=== PATIENT | female | born 1970 | race Caucasian/White ===

== ENCOUNTER 2017-10-01 13:44 | Emergency (ER) | payer OTHER, BC ==
[2017-10-01 13:46] VITALS: BP 133/85; PULSE 97; RESP 17; TEMP 99; O2SAT 98
[2017-10-01] MEDS ORDERED: ROBA500T PO (15:03)
--- NOTE | 2017-10-01 15:08 | PD ---
HPI Chief Complaint: Back/ Neck Pain or Injury Time Seen by Provider: 15:03 Travel History International Travel<30 days: No Contact w/Intl Traveler<30days: No Traveled to known affect area: No History of Present Illness HPI 46-year-old female presents to the emergency department with low back pain for approximately 2 weeks. Patient states that she has been pulling and pushing more frequently. 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 department because they have been down several people. Patient states that she was seen by urgent care and they prescribed 2 days of cyclobenzaprine and Medrol Dosepak for her pain. Patient does not remember any specific inciting event however her pain has worsened over the last 2 weeks after the increased workload. Patient denies radiation of pain at this point. Patient states that the pain is mild and worse with movement. Patient denies urinary complaints. Patient denies history of IV drug use, loss of bowel or bladder function, saddle anesthesia, weakness. She is here for Worker's Comp. [facility] Social History Tobacco Use: No Allergies-Medications (Allergen,Severity, Reaction): Coded Allergies: No Known Allergies (Unverified , 10/01/17) Reported Meds & Prescriptions Reported Meds & Active Scripts Active Robaxin (Methocarbamol) 500 Mg Tab 500 Mg PO TID 5 Days Review of Systems Except as stated in HPI: all other systems reviewed are Neg Physical Exam Narrative GENERAL: Well-nourished, well-developed patient. SKIN: Focused skin assessment warm/dry. HEAD: Normocephalic. EYES: No scleral icterus. No injection or drainage. NECK: Supple, trachea midline. No JVD or lymphadenopathy. CARDIOVASCULAR: Regular rate and rhythm without murmurs, gallops, or rubs. RESPIRATORY: Breath sounds equal bilaterally. No accessory muscle use. BACK: No CVA tenderness. No rash. No point tenderness on palpation of the spine. Paraspinous muscle tenderness from L1 to S1 MUSCULOSKELETAL: No cyanosis, or edema. Data Data Last Documented VS Vital Signs Date Time Temp Pulse Resp B/P (MAP) Pulse Ox O2 Delivery O2 Flow Rate FiO2 10/01/17 15:43 10/01/17 13:46 99.0 97 17 98 Orders Orders Ed Discharge Order (10/01/17 15:08) [facility] Medical Decision Making Medical Screen Exam Complete: Yes Emergency Medical Condition: Yes Differential Diagnosis Lumbar Muscle spasm versus lumbago versus strain Narrative Course 46-year-old female presents to the emergency department with low back pain for approximately 2 weeks. Patient states that she has been pulling and pushing more frequently. 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 Patient states that she was seen by urgent care and they prescribed 2 days of cyclobenzaprine and Medrol Dosepak for her pain. Patient does not remember any specific inciting event however her pain has worsened over the last 2 weeks after the increased workload. Patient denies radiation of pain at this point. Patient states that the pain is mild and worse with movement. Patient denies urinary complaints. Patient denies history of IV drug use, loss of bowel or bladder function, saddle anesthesia, weakness. She is here for Worker's Comp. Vital signs stable Physical exam consistent with muscle spasms of the lumbar spine. Patient will receive another 5 days of muscle relaxers for muscle spasm. Advised patient that she needs to follow up with her primary care physician for further evaluation and treatment of this complaint. Patient states this is a Worker's Compensation case. Advised patient to rest for a couple of days with light duty. Return to the emergency department for worsening and persistent symptoms Diagnosis Primary Impression: Muscle spasm Referrals: [facility] Departure Forms: Tests/Procedures, Work Release Enter return to work date: Oct 03, 2017 Special Instructions: Recommend light duty for 1 week. Avoid heavy lifting. Additional Instructions: Take medication as prescribed. Take medication initially at night and if it does not make you feel drowsy may take during the day. Continue ibuprofen for pain relief. Follow-up with her primary care physician within 2-3 days. Perform light stretches of the lower back and legs, and alternate heat and ice packs. If you develop increased pain, weakness, fever, chills, or bowel or bladder issues, return to the ED for further treatment and evaluation. Recommend light duty for 1 week. Scripts Methocarbamol (Robaxin) 500 Mg Tab 500 MG PO TID for Muscle Spasm for 5 Days, TAB 0 Refills Prov: Josué Paige MD 10/01/17 Disposition: 01 DISCHARGE HOME Condition: Stable Karuna Diaz Oct 01, 2017 15:08
== END 2017-10-01 15:44 | disposition home or self-care (01) ==
LOC: NEPK 13:44
DX: M62.830 Muscle spasm of back (principal)
CPT/HCPCS: 99283